=== PATIENT | male | born 1930 | race Caucasian/White ===

== ENCOUNTER → 2017-03-25 | Outpatient (CLI) | payer MEDICARE, BC | END | disposition home or self-care (01) | LOC: LABWHC1 14:11 | PROVIDERS: ATTEND Physical Medicine & Rehabilitation | DX: M47.817 Spondylosis without myelopathy or radiculopathy, lumbosacral region (principal); M51.36 Other intervertebral disc degeneration, lumbar region; M54.5 Low back pain | CPT/HCPCS: 36415; 84402; 84403 ==

== ENCOUNTER → 2018-01-13 | Day surgery (SDC) | payer BC, MEDICARE ==
[2018-01-06 15:20] VITALS: BMI 24.3
[~2018-01-13] MED LIST: BUPIVACAIN-EPI 0.5%-1:200,000 30 ML VIAL SQ ONE; DEXAMETHASONE SOD PHOSPHATE 10 MG/ML 1 ML VIAL IV ONE; GLYCOPYRROLATE 0.2 MG/ML 2 ML VIAL ONE; HEPARIN SODIUM,PORCINE 5,000 UNIT/ML 1 ML VIAL SQ ONE; HYDROcodone/APAP 5-325MG 1 EACH TAB PO ONE; LIDOCAINE 1% 20 ML VIAL (10MG/ML) FOR IV START INTRADERMA PRN; LIDOCAINE 1% INJ 10MG/ML (20 ML MDV) ONE; MIDAZOLAM 2 MG/2 ML VIAL IV PRN; MIDAZOLAM 2 MG/2 ML VIAL ONE; NEOSTIGMINE 1 MG/ML 10 ML VIAL ONE; PROPOFOL 10 MG/ML 20 ML VIAL IV ONE; ROCURONIUM BROMIDE 10 MG/ML 10 ML VIAL IV ONE; SCOPOLAMINE 1.5MG/72HR PATCH TRANSDERM ONE; TAMSULOSIN 0.4 MG CAP.ER.24H PO ONE; TAMSULOSIN 0.4 MG CAP.ER.24H PO STA; ceFAZolin IN SWFI 2 GM/20 ML SYRINGE IVP ONE; ePHEDrine SULFATE/0.9% NACL/PF 50 MG/5 ML SYRINGE IV ONE; fentaNYL (PF) 50 MCG/ML 2 ML AMP ONE
--- NOTE | 2018-01-13 08:35 | P.GSHP ---
History of Present Illness H&P Date: 01/13/18 CHIEF COMPLAINT: Inguinal hernia, right. HISTORY OF PRESENT ILLNESS: The patient is a 87-year-old male who presents with a history of swelling and pain along the right groin. He has had previous repair. He's noted increased swelling including pain of the area. Now he presents for repair of his inguinal hernia. PAST MEDICAL HISTORY: Please see list. PAST SURGICAL HISTORY: Please see list. MEDICATIONS: Please see list. ALLERGIES: Please see list. SOCIAL HISTORY: No illicit drug use FAMILY HISTORY: No reports of Crohn disease or ulcerative colitis. REVIEW OF ORGAN SYSTEMS: CONSTITUTIONAL: No reports of fevers or chills. No reports of weight loss despite prior attempts. GI: Denies any blood in stools or constipation. PHYSICAL EXAM: VITAL SIGNS: Stable GENERAL: Well-developed pleasant male in no acute distress. HEENT: No scleral icterus. Extraocular movements grossly intact. Moist buccal mucosa. NECK: Supple without lymphadenopathy. CHEST: Unlabored respirations. Equal bilateral excursions. CARDIOVASCULAR: Regular rate and rhythm. Distal 2+ pulses. ABDOMEN: Soft, nondistended. No peritoneal signs. Palpable defect of the right groin. MUSCULOSKELETAL: No clubbing, cyanosis, or edema. ASSESSMENT: 1. Inguinal hernia, right PLAN: 1. Recommend proceeding with a robotic inguinal repair with mesh with possible bilateral approach. 2. Benefits and risks of surgical intervention was discussed including possibility of open technique. 3. DVT prophylaxis. 4. Antibiotic prophylaxis. Past Medical History Past Medical History: Coronary Artery Disease (CAD), Cancer, Chest Pain / Angina , Hearing Disorder / Deafness, Hyperlipidemia, Osteoarthritis (OA) Additional Past Medical History / Comment(s): rt inguinal hernia,13 ADMITTED TO [facility] WITH CLINICAL IMPRESSION OF COMMON BILE DUCT OBSTRUCTION. BRADYCARDIA, DDD,THIN DRY SKIN USE PAPER TAPE, SKIN CANCER,VERY [facility] History of Any Multi-Drug Resistant Organisms: None Reported Past Surgical History: Cholecystectomy, Coronary Bypass/CABG, Heart Catheterization, Heart Catheterization With Stent, Hernia Repair Additional Past Surgical History / Comment(s): Cataract bilateral eyes,rt inguinal hernia,heart caths x8,5 heart stents,CABG x 3 vessels,ERCP, hemorrhoidectomy Past Anesthesia/Blood Transfusion Reactions: No Reported Reaction, Family History of Problems w/ Anesthesia Additional Past Anesthesia/Blood Transfusion Reaction / Comment(s): Dtrs PONV Date of Last Stent Placement:: UNK Smoking Status: Never smoker - Past Family History Brother(s) Family Medical History: Cancer Father Additional Family Medical History / Comment(s): EMPHYSEMA ? HEART PROBLEMS Mother Family Medical History: Congestive Heart Failure (CHF) Medications and Allergies Home Medications Medication Instructions Recorded Confirmed Type Aspirin 81 mg PO DAILY 05/20/15 01/06/18 History Atorvastatin [Lipitor] 20 mg PO DAILY 05/20/15 01/06/18 History Cholecalciferol [Vitamin D3] 1,000 unit PO DAILY 05/20/15 01/07/18 History Clopidogrel [Plavix] 75 mg PO DAILY 05/20/15 01/06/18 History Fish Oil/Dha/Epa [Fish Oil 1,200 1 cap PO DAILY 05/20/15 01/07/18 History mg Fish Oil] Metoprolol Succinate [Toprol XL] 25 mg PO QAM 05/20/15 01/06/18 History Multivitamin/Iron/Folic Acid 2 tab PO HS 05/20/15 01/07/18 History [Centrum Complete Multivit Tab] Quinapril HCl [Accupril] 5 mg PO QAM 05/20/15 01/07/18 History Ubidecarenone [Co Q-10] 200 mg PO DAILY 05/20/15 01/07/18 History Turmeric Root Extract [Turmeric] 500 mg PO DAILY 01/06/18 01/07/18 History [place] Supplement 1 dose PO DAILY 01/07/18 01/07/18 History HYDROcodone/APAP 5-325MG [[place] 1 tab PO TID PRN 01/07/18 01/07/18 History 5-325] Isosorbide Mononitrate [Isosorbide 30 mg PO QAM 01/07/18 01/07/18 History Mononitrate ER] [place] Supplement 1 dose PO DAILY 01/07/18 01/07/18 History Allergies Allergy/AdvReac Type Severity Reaction Status Date / Time amoxicillin AdvReac Swelling Verified 01/06/18 15:03
[2018-01-13] MEDS: LACTATED RINGERS 1,000 ML IV SCH ×2 (09:09→10:32)
[2018-01-13 09:30] LABS: Basophils % (A) 1 %; Eosinophils # (A) 0.3 k/uL (0-0.7); Eosinophils % (A) 5 %; HCT 41.4 % (39.0-53.0); HGB 13.6 gm/dL (13.0-17.5); Lymphocytes # (A) 0.8 k/uL (1.0-4.8); Lymphocytes % (A) 17 %; MCH 30.8 pg (25.0-35.0); MCHC 32.9 g/dL (31.0-37.0); MCV 93.7 fL (80.0-100.0); Mean Platelet Volume 6.8; Monocytes # (A) 0.4 k/uL (0-1.0); Monocytes % (A) 9 %; Neutrophils # (A) 3.2 k/uL (1.3-7.7); Neutrophils % (A) 65 %; Platelet Count 173 k/uL (150-450); RBC 4.42 m/uL (4.30-5.90); RDW 13.4 % (11.5-15.5); WBC 4.9 k/uL (3.8-10.6)
[2018-01-13 09:40] LABS: Anion Gap 7 mmol/L; Blood Urea Nitrogen 14 mg/dL (9-20); Calcium 9.2 mg/dL (8.4-10.2); Carbon Dioxide 27 mmol/L (22-30); Chloride 99 mmol/L (98-107); Glucose 86 mg/dL (74-99); Potassium 4.3 mmol/L (3.5-5.1); Sodium 133 mmol/L (137-145)
[2018-01-13] MEDS: ONDANSETRON 4 MG/2 ML VIAL IVP ONE ×2 (10:26→12:42)
--- NOTE | 2018-01-13 12:03 | P.OP ---
Date of Procedure: 01/13/18 Description of Procedure: SURGEON: EHSAN BARLOW MD PREOPERATIVE DIAGNOSES: 1. Recurrent right inguinal hernia. 2. Coronary artery disease status post open heart bypass grafting 3. Ischemic cardiomyopathy 4. History of angina or congestive heart failure with diastolic dysfunction 5. Hyperlipidemia 6. Sensorineural hearing loss POSTOPERATIVE DIAGNOSES: 1. Recurrent right inguinal hernia. 2. Coronary artery disease status post open heart bypass grafting 3. Ischemic cardiomyopathy 4. History of angina or congestive heart failure with diastolic dysfunction 5. Hyperlipidemia 6. Sensorineural hearing loss OPERATION: 1. Robotic-assisted da Matthew Xi laparoscopic recurrent right inguinal hernia repair with mesh, 11.[address] ANESTHESIA: General with local anesthetic ESTIMATED BLOOD LOSS: 10 mL. SPECIMENS REMOVED: Incarcerated right inguinal hernia sac COMPLICATIONS: None. INDICATIONS: The patient is a 87-year-old gentleman who presents with history of right swelling. Now presents for definitive surgical intervention. Laparoscopic versus open and robotic approaches were discussed. Benefits and risks including bleeding, infection, injury to the vas deferens as well as sterility and chronic groin pain were reviewed. Placement of mesh was also described. Informed consent was obtained. DESCRIPTION: In the preoperative area, the patient was marked with indelible marker along the inguinal hernia. The patient was brought to the operating room and initially laid in supine position. The abdomen had been prepped and draped in standard sterile fashion. [place] draping was also placed. Prior to incision, a timeout protocol was confirmed with surgical team regarding patient's name including procedures to be performed and location along the right groin. Initial positioning for the robotic assisted ports were selected whereby 20 cm superior to the target anatomy, 0 degree 5 mm laparoscopic trocar entry was performed at the left upper quadrant. The abdomen was insufflated to 15 mmHg which he had tolerated well. Diagnostic laparoscopy demonstrated a indirect inguinal hernia along the right groin. Next, along the epigastrium, 8 mm robot trocar was placed. An 8-mm robotic trocar was placed under direct visualization at the right upper quadrant. An 8 mm port was placed at the left upper quadrant. All trocars were positioned between 8 to 10-cm apart from each other. The [employer] XI robot was primed, draped, prepared for docking along the left side of the patient. I then went to the [employer] console. The aquatics assistant department head was at bedside for exchange of the robot arms and equipment. Moderate scarring of the sigmoid colon to left groin was identified. The right inguinal hernia sac was evaginated whereby the peritoneum was scored using Endo scissors with cautery. Once completely reduced into the abdominal cavity, the peritoneal sac of the hernia was stripped along a direct inguinal hernia. The sac was resected and then passed off for further pathological analysis. The size of the hernia defect was 3 cm with intraoperative films obtained. Using a 2-0 VLOC, the peritoneal defect of the right inguinal hernia site was closed using a running suture. The defect was found to be completely closed with complete reduction of the right direct inguinal hernia was confirmed. As an onlay, an 11.[address] mesh by [employer] was initially cut in half and entered into the abdominal cavity via the 8 mm trocar. The mesh was tacked to the pelvis using 2-0 VLOC 9-inch length sutures. The robot was undocked from the patient's bedside. I then rescrubbed into the case. Insufflation was released from the abdominal cavity and all instruments were removed from the abdominal cavity. The rest of incisions were reapproximated using 4-0 Monocryl in a running subcuticular fashion. Local anesthetic was placed along the incision including for a right groin block. Incisions were cleansed using dilute hydrogen peroxide. Liquid glue was applied to the skin. At the end of the procedure, the needle, sponge and instrument counts had been verified correct by the communication electronic technician. The patient had tolerated the procedure well and was taken to the postanesthesia care unit in stable condition. Console time 29 minutes Plan - Discharge Summary New Discharge Prescriptions: No Action Metoprolol Succinate [Toprol XL] 25 mg PO QAM Clopidogrel [Plavix] 75 mg PO DAILY Quinapril HCl [Accupril] 5 mg PO QAM Atorvastatin [Lipitor] 20 mg PO DAILY Aspirin 81 mg PO DAILY Cholecalciferol [Vitamin D3] 1,000 unit PO DAILY Ubidecarenone [Co Q-10] 200 mg PO DAILY Multivitamin/Iron/Folic Acid [Centrum Complete Multivit Tab] 2 tab PO HS Fish Oil/Dha/Epa [Fish Oil 1,200 mg Fish Oil] 1 cap PO DAILY Turmeric Root Extract [Turmeric] 500 mg PO DAILY HYDROcodone/APAP 5-325MG [[place] 5-325] 1 tab PO TID PRN PRN Reason: Pain Isosorbide Mononitrate [Isosorbide Mononitrate ER] 30 mg PO QAM [place] Supplement 1 dose PO DAILY [place] Supplement 1 dose PO DAILY Discharge Medication List Aspirin 81 mg PO DAILY 05/20/15 [History] Atorvastatin [Lipitor] 20 mg PO DAILY 05/20/15 [History] Cholecalciferol [Vitamin D3] 1,000 unit PO DAILY 05/20/15 [History] Clopidogrel [Plavix] 75 mg PO DAILY 05/20/15 [History] Fish Oil/Dha/Epa [Fish Oil 1,200 mg Fish Oil] 1 cap PO DAILY 05/20/15 [History] Metoprolol Succinate [Toprol XL] 25 mg PO QAM 05/20/15 [History] Multivitamin/Iron/Folic Acid [Centrum Complete Multivit Tab] 2 tab PO HS [History] Quinapril HCl [Accupril] 5 mg PO QAM 05/20/15 [History] Ubidecarenone [Co Q-10] 200 mg PO DAILY 05/20/15 [History] Turmeric Root Extract [Turmeric] 500 mg PO DAILY 01/06/18 [History] [place] Supplement 1 dose PO DAILY 01/07/18 [History] HYDROcodone/APAP 5-325MG [[place] 5-325] 1 tab PO TID PRN 01/07/18 [History] Isosorbide Mononitrate [Isosorbide Mononitrate ER] 30 mg PO QAM 01/07/18 [ History] [place] Supplement 1 dose PO DAILY 01/07/18 [History]
[2018-01-13 12:31] VITALS: TEMP 97.8
[2018-01-13 12:37] VITALS: RESP 16
[2018-01-13] MEDS: HYDROmorphone 0.5 MG/0.5 ML SYRINGE IVP PRN ×2 (12:41→12:57)
[2018-01-13 14:11] VITALS: PULSE 45
[2018-01-13 15:11] VITALS: BP 129/68
== END | disposition home or self-care (01) ==
LOC: OR 14:47
PROVIDERS: ATTEND Surgery Plastic and Reconstructive Surgery
DX: K40.91 Unilateral inguinal hernia, without obstruction or gangrene, recurrent (principal); I25.119 Atherosclerotic heart disease of native coronary artery with unspecified angina pectoris; I25.5 Ischemic cardiomyopathy; E78.5 Hyperlipidemia, unspecified; H90.5 Unspecified sensorineural hearing loss; M19.90 Unspecified osteoarthritis, unspecified site; Z88.0 Allergy status to penicillin; Z79.82 Long term (current) use of aspirin; Z79.02 Long term (current) use of antithrombotics/antiplatelets; Z79.899 Other long term (current) drug therapy; Z85.828 Personal history of other malignant neoplasm of skin; Z95.1 Presence of aortocoronary bypass graft; Z95.5 Presence of coronary angioplasty implant and graft; Z80.9 Family history of malignant neoplasm, unspecified; Z82.49 Family history of ischemic heart disease and other diseases of the circulatory system
CPT/HCPCS: 49651; 86900; 86901; 80048; 85025; 86850; 88302; C1781; J2250; J1644; J1100; J2710; J2405; J2001; J3010; J2704; J1170; J0690